=== PATIENT | female | born 1950 | race Caucasian/White ===

== ENCOUNTER 2018-12-11 10:47 | Observation (INO) | payer OTHER ==
[~2018-12-11] VITALS: Ht 144.8 cm; Wt 69.3 kg
[2018-12-11] VITALS (7 sets, daily range): BP systolic 121–142; BP diastolic 65–66; PULSE 68–77; RESP 18; Ht 144.8 cm; Wt 69.3 kg
[2018-12-11] MEDS ORDERED: ATEN50TA PO (11:41)
[2018-12-11] MEDS ORDERED: ASPI-535 PO (11:41)
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
[2018-12-11] MEDS ORDERED: NACL 0.9% 3 ML SYG IV SCH (13:00)
[2018-12-11] MEDS ORDERED: ACETAMINOPHEN 325 MG TAB PO PRN (13:00)
[2018-12-11] MEDS ORDERED: ONDANSETRON 4 MG INJ IV PRN (13:00)
[2018-12-11] MEDS: HEPARIN 5,000 UNIT/1 ML VIAL SC SCH ×2 (14:59→21:24)
--- NOTE | 2018-12-11 17:40 | CONS ---
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 I discussed options with her including vagal maneuvers, chronic meds, ablation. She is now agreeable to taking meds daily HTN: not on meds at home -start diltiazem 120mg daily. If no recurrence of SVT today, can be discharged with this as outpt Consultation Date/Type/Reason Admit Date/Time Dec 11, 2018 at 10:51 Date of Consultation: Dec 11, 2018 Type of Consult Cardiology Reason for Consultation SVT Requesting Provider: DANIELLE JOE NP Date/Time of Note DATE: 12/11/18 TIME: 17:35 Hx of Present Illness 68 yo F with a h/o SVT, HTN, who presented with palpitations to [facility] and was found to be in SVT. She was given adenosine with conversion to sinus. She was transferred here. She notes that she has had the SVT for 2 years. It was first discovered in [facility] and she was taking a PRN med which is not familiar to me. She then ran out. She was prescribed some sort of BB or CCB during the prior two hospitalizations in [place] but she was only using them PRN and ran out. She has not had follow up. She had a stress test which was normal on recent hospitalization. per HPI Past Medical History per hPI Home Meds Reported Medications Atenolol* (Atenolol*) 50 Mg Tablet, 5 MG PO BID, #60 TAB 12/11/18 Aspirin Ec (Aspir 81) 81 Mg Tablet.dr, 81 MG PO DAILY, #30 TAB 12/11/18 Medications Current Medications IV Flush (NS 3 ml) 3 ml PER PROTOCOL IV ; Start 12/11/18 at 13:00 Ondansetron HCl (Zofran Inj) 4 mg Q6H PRN IV NAUSEA/VOMITING; Start 12/11/18 at 13:00 Acetaminophen (Tylenol Tab) 650 mg Q6H PRN PO .PAIN 1-3 OR TEMP; Start 12/11/18 at 13:00 Heparin Sodium (Porcine) (Heparin (5000 Units/1ml)) 5,000 unit Q8 SC Last administered on 12/11/18at 14:59; Admin Dose 5,000 UNIT; Start 12/11/18 at 14:00 Metoprolol Tartrate (Lopressor) 25 mg BID PO ; Start 12/11/18 at 21:00 Allergies: Coded Allergies: No Known Allergy (Unverified , 12/11/18) Past Surgical History Past Surgical Hx: no surgical history Social History Alcohol Use: none Smoking Status: Never smoker Drug Use: none Exam/Review of Systems Vital Signs Vitals Vital Signs Date Temp Pulse Resp B/P (MAP) Pulse Ox O2 O2 Flow FiO2 Time Delivery Rate 12/11/18 69 16:08 12/11/18 98.0 18 121/65 98 Room Air 15:47 (83) Exam Constitutional: alert, oriented Psych: no complaints, nl mood/affect Head: normocephalic, atraumatic Neck: supple; No jvd Respiratory: clear to auscultation; No crackles/rales Cardiovascular: regular rate and rhythm; No edema Gastrointestinal: soft, non-tender Neurological: nl mental status, nl speech Labs Result Diagram: 12/11/18 1324 12/11/18 1324 Results 24hrs Laboratory Tests Test 12/11/18 13:24 12/11/18 13:29 White Blood Count 6.5 Red Blood Count 4.21 Hemoglobin 12.1 Hematocrit 36.8 L Mean Corpuscular Volume 87.4 Mean Corpuscular Hemoglobin 28.7 L Mean Corpuscular Hemoglobin Concent 32.9 Red Cell Distribution Width 13.6 Platelet Count 260 Mean Platelet Volume 9.8 Immature Granulocytes % 0.300 Neutrophils % 57.1 Lymphocytes % 33.1 Monocytes % 7.3 Eosinophils % 1.7 Basophils % 0.5 Nucleated Red Blood Cells % 0.0 Immature Granulocytes # 0.020 Neutrophils # 3.7 Lymphocytes # 2.1 Monocytes # 0.5 Eosinophils # 0.1 Basophils # 0.0 Nucleated Red Blood Cells # 0.0 Sodium Level 141 Potassium Level 3.9 Chloride Level 104 Carbon Dioxide Level 27 Anion Gap 10 Blood Urea Nitrogen 15 Creatinine 0.56 Est Glomerular Filtrat Rate mL/min > 60 Glucose Level 88 Calcium Level 9.5 Magnesium Level 1.9 Total Bilirubin 0.2 Direct Bilirubin 0.00 Indirect Bilirubin 0.2 Aspartate Amino Transf (AST/SGOT) 20 Alanine Aminotransferase (ALT/SGPT) 24 Alkaline Phosphatase 78 Total Protein 7.2 Albumin 4.2 Globulin 3.00 Albumin/Globulin Ratio 1.40 Hemoglobin A1c 5.9 Phosphorus Level 4.7 Creatine Kinase 57 Creatine Kinase Index 1.6 Creatinine Kinase MB (Mass) 0.91 Troponin I 0.014 B-Type Natriuretic Peptide 260 H Thyroid Stimulating Hormone (TSH) 1.790 Free Thyroxine 0.92 Medications Medications Current Medications IV Flush (NS 3 ml) 3 ml PER PROTOCOL IV ; Start 12/11/18 at 13:00 Ondansetron HCl (Zofran Inj) 4 mg Q6H PRN IV NAUSEA/VOMITING; Start 12/11/18 at 13:00 Acetaminophen (Tylenol Tab) 650 mg Q6H PRN PO .PAIN 1-3 OR TEMP; Start 12/11/18 at 13:00 Heparin Sodium (Porcine) (Heparin (5000 Units/1ml)) 5,000 unit Q8 SC Last administered on 12/11/18at 14:59; Admin Dose 5,000 UNIT; Start 12/11/18 at 14:00 Metoprolol Tartrate (Lopressor) 25 mg BID PO ; Start 12/11/18 at 21:00 JOANNA PARIS Dec 11, 2018 17:40
[2018-12-11] MEDS: DILTIAZEM (CD) 120 MG CAP PO SCH (18:40)
[2018-12-11] MEDS ORDERED: METOPROLOL 25 MG TAB PO SCH (21:00)
[2018-12-12] VITALS: PULSE 71
[2018-12-12 04:00] VITALS: BP 148/74; PULSE 63; PULSE 64; RESP 18
[2018-12-12] MEDS: HEPARIN 5,000 UNIT/1 ML VIAL SC SCH ×2 (06:25→14:00)
[2018-12-12 07:51] VITALS: BP 146/70; PULSE 63; RESP 18
[2018-12-12 08:00] VITALS: PULSE 65
[2018-12-12] MEDS: DILTIAZEM (CD) 120 MG CAP PO SCH (08:26)
[2018-12-12] MEDS ORDERED: DILT120C77 PO (09:43)
--- NOTE | 2018-12-12 09:46 | PDOCDIS ---
Discharge Instructions CONDITION [id number] Patient Condition: [id number] Stable HOME CARE INSTRUCTIONS: [id number] Diet Instructions: [id number] Low Fat /Cholesterol FOLLOW UP/APPOINTMENTS Follow-up Plan Espinoza Forrester MD Specialty: Internal Medicine Office Address: [address] [place] [address] [place], [place] [id number] Office OTHER ORDERS: Other Orders: 1. Take a low-cholesterol diet. 2. Take medications as per prescription. 3. Resume activities as tolerated 4. Follow-up with your primary care physician in 2 weeks. If you do not have a primary care physician, please call Dr. Espinoza Forrester's office 5. Please have your primary care physician arrange for outpatient cardiology follow-up. 6. Please go to the nearest emergency room if you have any chest pain, palpitations, shortness of breath, or any other unusual signs/symptoms. DANIELLE JOE NP Dec 12, 2018 09:46
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
--- NOTE | 2018-12-12 11:04 | RADRPT ---
Echocardiogram Report Patient Name: JENNY PADRONMPatient ID: [id number] : 1950 (68y 3m)Study Date: 12/12/2018 7:21:11 AM Gender: FAccession #: [id number] Tech: Elliot Hinson ROBERT Location: [facility] Ref.Physician: DANIELLE JOE Height(Cm): BSA: Weight(Kg): Quality: AdequateAccount #: Procedures: Echocardiographic Report: Transthoracic echocardiogram with complete 2D, M-Mode, and doppler examination. Indications: Chest Pain. Measurements: 2D/M Mode Doppler Measurement Value Normal Range Measurement Value Normal Range LVIDd 2D 4.4 [ 3.8 - 5.2 ] cm AV Peak Cristobal 1.5 [ 100.0 - 170.0 ] cm/se c LVIDs 2D 2.7 [ 2.2 - 3.5 ] cm AV Peak PG 9.0 [ 2.0 - 9.0 ] mmHg LVPWd 2D 1.0 [ 0.6 - 0.9 ] cm LVOT Peak Cristobal 0.9 [ 70.0 - 110.0 ] cm/sec IVSd 2D 1.1 [ 0.6 - 0.9 ] cm LVOT Peak PG 3.0 [ 2.0 - 6.0 ] mmHg AoR Diam 2D 2.3 [ 2.3 - 3.1 ] cm MV E Peak Cristobal 0.7 [ 60.0 - 130.0 ] cm/sec EDV 2D 85.8 [ 46.0 - 106.0 ] ml MV A Peak Cristobal 0.9 [ 100.0 - 120.0 ] cm/se c ESV 2D 26.5 [ 14.0 - 42.0 ] ml MV E/A 0.7 [ 0.8 - 1.5 ] ratio EF 2D 69.1 [ 54.0 - 74.0 ] percent MV PHT 67.0 [ 20.0 - 100.0 ] msec LA Dimen 2D 3.1 [ 2.7 - 3.8 ] cm MV Decel Time 229 [ 104 - 258 ] msec MV Decel Luna 3 Lat E` Cristobal 0.1 [ 10.0 - 15.0 ] cm/sec Lateral E/E` 7.2 [ 1.0 - 2.0 ] ratio Med E` Cristobal 0.1 cm/sec MV E/A 0.7 [ 0.8 - 1.5 ] ratio MVA PHT 3.3 [ 2.0 - 4.0 ] cm2 Findings: Left Ventricle: Normal left ventricular systolic function. Normal left ventricular cavity size. Mild hypertrophy of the basal septum. Mild LV septal hypertrophy. Ejection fraction is visually estimated at 60-65 %. Tissue Doppler/Mitral Doppler indices are consistent with impaired relaxation (Stage I diastolic dysfunction). Right Ventricle: Normal right ventricular size. Normal right ventricular systolic function. Left Atrium: There is moderate enlargement of left atrium. Right Atrium: The right atrium is normal in size. Atrial Septum: Normal atrial septum. Ventricular septum: Normal/intact ventricular septum. Mitral Valve: Normal appearance of the mitral valve. Mild mitral valve regurgitation. Aortic Valve: Aortic sclerosis without significant stenosis. Trace to mild aortic valve regurgitation. Tricuspid Valve: Normal appearance of the tricuspid valve. Unable to obtain RVSP due to minimal presence of tricuspid regurgitation. There is trivial tricuspid regurgitation. Pulmonic Valve: Normal pulmonic valve appearance. No evidence of pulmonic regurgitation. Pericardium: Normal pericardium with no significant pericardial effusion. Aorta: Normal aortic root. IVC: Normal size and normal respiratory collapse consistent with normal right atrial pressure. Pulmonary Artery: Not well visualized. Conclusions: Normal left ventricular systolic function. Normal left ventricular cavity size. Mild hypertrophy of the basal septum. Mild LV septal hypertrophy. Ejection fraction is visually estimated at 60-65 %. Tissue Doppler/Mitral Doppler indices are consistent with impaired relaxation (Stage I diastolic dysfunction). Aortic sclerosis without significant stenosis. Trace to mild aortic valve regurgitation. Unable to obtain RVSP due to minimal presence of tricuspid regurgitation. Normal size and normal respiratory collapse consistent with normal right atrial pressure. Electronically Signed By: Severo Lyons 2018-12-12 11:02:56 PDT
[2018-12-12 11:42] VITALS: BP 140/68; PULSE 69; RESP 16
[2018-12-12 12:00] VITALS: PULSE 70
--- NOTE | 2018-12-12 13:21 | CONS ---
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 I discussed options with her including vagal maneuvers, chronic meds, ablation. She is now agreeable to taking meds daily HTN: not on meds at home. EF preserved -ok for d/c -diltiazem 120mg daily on discharge Consultation Date/Type/Reason Admit Date/Time Dec 11, 2018 at 10:51 Initial Consult Date 12/11/18 Type of Consult Cardiology Requesting Provider: DANIELLE JOE NP Date/Time of Note DATE: 12/12/18 TIME: 13:20 24 HR Interval Summary Free Text/Dictation No SVT, no complaints Exam/Review of Systems Vital Signs Vitals Vital Signs Date Temp Pulse Resp B/P (MAP) Pulse Ox O2 O2 Flow FiO2 Time Delivery Rate 12/12/18 70 12:00 12/12/18 98.1 16 140/68 97 Room Air 11:42 (92) Intake and Output 12/11/18 12/11/18 12/12/18 1515:00 23:00 07:00 IntakeIntake Total 575 ml 450 ml BalanceBalance 575 ml 450 ml Exam Constitutional: alert, oriented Psych: no complaints, nl mood/affect Head: normocephalic, atraumatic Neck: supple; No jvd Respiratory: clear to auscultation; No crackles/rales Cardiovascular: regular rate and rhythm; No edema Gastrointestinal: soft, non-tender Neurological: nl mental status, nl speech Labs Result Diagram: 12/12/18 0602 12/12/18 0602 Results 24hrs Laboratory Tests Test 12/11/18 13:24 12/11/18 13:29 12/11/18 18:57 12/12/18 00:59 White Blood Count 6.5 Red Blood Count 4.21 Hemoglobin 12.1 Hematocrit 36.8 L Mean Corpuscular Volume 87.4 Mean Corpuscular 28.7 L Hemoglobin Mean Corpuscular 32.9 Hemoglobin Concent Red Cell Distribution 13.6 Width Platelet Count 260 Mean Platelet Volume 9.8 Immature Granulocytes % 0.300 Neutrophils % 57.1 Lymphocytes % 33.1 Monocytes % 7.3 Eosinophils % 1.7 Basophils % 0.5 Nucleated Red Blood 0.0 Cells % Immature Granulocytes # 0.020 Neutrophils # 3.7 Lymphocytes # 2.1 Monocytes # 0.5 Eosinophils # 0.1 Basophils # 0.0 Nucleated Red Blood 0.0 Cells # Sodium Level 141 Potassium Level 3.9 Chloride Level 104 Carbon Dioxide Level 27 Anion Gap 10 Blood Urea Nitrogen 15 Creatinine 0.56 Est Glomerular Filtrat > 60 Rate mL/min Glucose Level 88 Calcium Level 9.5 Magnesium Level 1.9 Total Bilirubin 0.2 Direct Bilirubin 0.00 Indirect Bilirubin 0.2 Aspartate Amino 20 Transf (AST/SGOT) Alanine 24 Aminotransferase (ALT/SG PT) Alkaline Phosphatase 78 Total Protein 7.2 Albumin 4.2 Globulin 3.00 Albumin/Globulin Ratio 1.40 Hemoglobin A1c 5.9 Phosphorus Level 4.7 Creatine Kinase 57 55 52 Creatine Kinase Index 1.6 1.5 1.4 Creatinine Kinase MB 0.91 0.82 0.72 (Mass) Troponin I 0.014 < 0.012 0.014 B-Type Natriuretic 260 H Peptide Thyroid Stimulating 1.790 Hormone (TSH) Free Thyroxine 0.92 Test 12/12/18 06:02 White Blood Count 5.9 Red Blood Count 4.34 Hemoglobin 12.5 Hematocrit 38.3 Mean Corpuscular Volume 88.2 Mean Corpuscular 28.8 L Hemoglobin Mean Corpuscular 32.6 Hemoglobin Concent Red Cell Distribution 13.5 Width Platelet Count 245 Mean Platelet Volume 10.0 Immature Granulocytes % 0.300 Neutrophils % 53.1 Lymphocytes % 36.2 Monocytes % 7.6 Eosinophils % 2.0 Basophils % 0.8 Nucleated Red Blood 0.0 Cells % Immature Granulocytes # 0.020 Neutrophils # 3.1 Lymphocytes # 2.1 Monocytes # 0.5 Eosinophils # 0.1 Basophils # 0.1 Nucleated Red Blood 0.0 Cells # Sodium Level 141 Potassium Level 4.1 Chloride Level 105 Carbon Dioxide Level 27 Anion Gap 9 Blood Urea Nitrogen 17 Creatinine 0.54 Est Glomerular Filtrat > 60 Rate mL/min Glucose Level 117 Calcium Level 9.3 Phosphorus Level 4.2 Magnesium Level 2.0 Triglycerides Level 251 H Cholesterol Level 237 H LDL Cholesterol, 139 Calculated HDL Cholesterol 48 Cholesterol/HDL Ratio 4.9 Medications Medications Current Medications IV Flush (NS 3 ml) 3 ml PER PROTOCOL IV ; Start 12/11/18 at 13:00 Ondansetron HCl (Zofran Inj) 4 mg Q6H PRN IV NAUSEA/VOMITING; Start 12/11/18 at 13:00 Acetaminophen (Tylenol Tab) 650 mg Q6H PRN PO .PAIN 1-3 OR TEMP; Start 12/11/18 at 13:00 Heparin Sodium (Porcine) (Heparin (5000 Units/1ml)) 5,000 unit Q8 SC Last administered on 12/12/18at 06:25; Admin Dose 5,000 UNIT; Start 12/11/18 at 14:00 Diltiazem HCl (Cardizem Cd) 120 mg DAILY PO Last administered on 12/12/18at 08 :26; Admin Dose 120 MG; Start 12/11/18 at 18:00 JOANNA PARIS Dec 12, 2018 13:21
== END 2018-12-12 14:30 | disposition home or self-care (01) ==
LOC: INTOOBSV 10:51 → TEL 10:51
PROVIDERS: ADMIT Family Medicine; ATTEND Family Medicine
DX: I47.1 Supraventricular tachycardia (principal); R07.9 Chest pain, unspecified; I10 Essential (primary) hypertension; E78.5 Hyperlipidemia, unspecified; R73.03 Prediabetes; E66.9 Obesity, unspecified; Z68.33 Body mass index [BMI] 33.0-33.9, adult; Z79.82 Long term (current) use of aspirin
CPT/HCPCS: 80048; 80053; 80061; 82550; 82553; 83036; 83735; 83880; 84100; 84439; 84443; 84484; 85025; 93306; J1644; Z7500; Z7610; G0378